=== PATIENT | female | born 1995 ===

== ENCOUNTER 2023-05-26 10:56 | Outpatient (CLI) | payer OTHER, SELFPAY | END 2023-05-26 10:57 | disposition home or self-care (01) | PROVIDERS: Visit Provider Obstetrics & Gynecology | DX: R53.83 Other fatigue (principal); R30.0 Dysuria; N93.9 Abnormal uterine and vaginal bleeding, unspecified | CPT/HCPCS: 84146; 84443; 87086; 87186; 87491; 87591 ==

== ENCOUNTER 2025-03-27 15:14 | Outpatient (CLI) | payer OTHER, SELFPAY | END 2025-03-27 15:15 | disposition home or self-care (01) | PROVIDERS: PCP Family Medicine; Visit Provider Family Medicine | DX: N92.1 Excessive and frequent menstruation with irregular cycle (principal); R03.0 Elevated blood-pressure reading, without diagnosis of hypertension; R63.5 Abnormal weight gain; R53.83 Other fatigue; Z91.018 Allergy to other foods; Z13.6 Encounter for screening for cardiovascular disorders | CPT/HCPCS: 80053; 80061; 82728; 84443; 86003 ==

== ENCOUNTER 2025-04-17 10:36 | Outpatient (CLI) | payer OTHER, SELFPAY ==
[2025-04-19 07:30] LABS: HPV Source Cervical/Vag
[2025-04-20 12:05] LABS: Pap Test Digital Imaging Done
== END 2025-04-17 10:37 | disposition home or self-care (01) ==
PROVIDERS: PCP Family Medicine; Visit Provider Family Medicine
DX: Z12.4 Encounter for screening for malignant neoplasm of cervix (principal)
CPT/HCPCS: 87624; 87625; 88141; 88142; 88175

== ENCOUNTER 2025-05-03 08:31 | Outpatient (CLI) | payer OTHER, SELFPAY | END 2025-05-03 08:32 | disposition home or self-care (01) | LOC: NFLDREF 05-07 03:53 | PROVIDERS: PCP Family Medicine; Referring Provider Family Medicine; Visit Provider Family Medicine | DX: I10 Essential (primary) hypertension (principal) | CPT/HCPCS: 80048; 80053; 80061 ==